=== PATIENT | female | born 1955 | race Caucasian/White ===

== ENCOUNTER 2016-08-06 08:51 | Emergency (ER) | payer OTHER ==
[2016-08-06 09:15] VITALS: BMI 24.4
[2016-08-06] MEDS ORDERED: SODIUM CHLORIDE 1,000 ML IV ONE (09:26)
[2016-08-06] MEDS ORDERED: morphine CARPU-JECT 2 MG/1 ML DISP.SYRIN IVPUSH ONE (10:07)
--- NOTE | 2016-08-06 10:08 | PDOC ---
History of Present Illness <Shailesh Lowry - Last Filed: 08/06/16 13:05> - History of Present Illness Initial Comments: 08/06/16 14:02 The patient is a 60 year old female, with a significant past medical history of kidney stones, who presents to the emergency department with right lower sided abdominal pain, nausea, vomiting, and chills since 2AM this morning. She reports the abdominal pain radiates from her right upper and lower quadrants to her right lower back and down the back of her right leg. She described the pain as sharp, constant, stabbing, 10/10 in severity. She reports numerous episodes of vomiting, and reports the last episode of vomiting as nonbloody just before entering the room to obtain history. The patient reports having a loss of appetite and states she has been experiencing chills, but denies fevers. She reports experiencing a similar pain about a year ago, however, states the pain resolved on its own. She states she became concerned today when the pain continued to increase in severity. The patient states this pain is also similar to her experience with kidney stones six years ago. She denies chest pain, shortness of breath, headache and dizziness. She denies diarrhea and constipation. She denies dysuria, frequency, urgency and hematuria. Allergies: NKDA Past surgical history: Cesarian, breast lumpectomy Social history: Denies toxic habits PCP - Dr. Ainsley Tucker <Lien Moon - Last Filed: 08/06/16 14:03> - General Chief Complaint: Pain, Acute Stated Complaint: FLANK PAIN Time Seen by Provider: 08/06/16 09:25 Past History - Past Medical History Kidney Stones: Yes - Reproductive History Is Patient Now?: No - Immunization History Immunization Up to Date: Yes - Psycho/Social/Smoking Cessation Hx Anxiety: No Suicidal Ideation: No Smoking Status: No Smoking History: Former smoker Have you smoked in the past 12 months: No Number of Cigarettes Smoked Daily: 0 Information on smoking cessation initiated: No Hx Alcohol Use: No Drug/Substance Use Hx: No <Shailesh Lowry - Last Filed: 08/06/16 13:05> <Lien Moon - Last Filed: 08/06/16 14:03> - Past Medical History Allergies/Adverse Reactions: Allergies Allergy/AdvReac Type Severity Reaction Status Date / Time No Known Allergies Allergy Verified 08/06/16 09:12 Home Medications: Ambulatory Orders Ibuprofen 400 mg PO QID #30 tablet 08/06/16 Oxycodone HCl/Acetaminophen [Percocet 5-325 mg Tablet -] 1 combo PO Q6H PRN #14 tablet MDD 4 08/06/16 Tamsulosin HCl [Flomax] 0.4 mg PO DAILY #7 capsule 08/06/16 Review of Systems - Review of Systems Able to Perform ROS?: Yes Comments:: 08/06/16 14:02 CONSTITUTIONAL: (+) Chills,No reported: Fever, Diaphoresis, Generalized Weakness, Malaise, Loss of Appetite HEENT: No reported: Rhinorrhea, Nasal Congestion, Throat Pain, Throat Swelling, Difficulty Swallowing, Mouth Swelling, Ear Pain, Eye Pain, Visual Changes CARDIOVASCULAR: No reported: Chest Pain, Syncope, Palpitations, Irregular Heart Rate, Lightheadedness, Peripheral Edema RESPIRATORY: No reported: Cough, Shortness of Breath, SOB with Exertion, Orthopnea, Wheezing , Stridor, Hemoptysis GASTROINTESTINAL: (+) Right sided bdominal pain, Nausea, Vomiting, No reported: Abdominal Distension, Diarrhea, Constipation, Melena, Hematochezia GENITOURINARY: No reported: Dysuria, Frequency, Urgency, Hesitancy, Flank Pain, Genital Pain MUSCULOSKELETAL: No reported: Myalgia, Arthralgia, Joint Swelling, Back pain, Neck Pain SKIN: No reported: Rash, Itching, Pallor HEMEATOLOGIC/IMMUNOLOGIC: No reported: Easy Bleeding, Easy Bruising, Lymphadenopathy, Frequent infections ENDOCRINE: No reported: Unexplained Weight Gain, Unexplained Weight Loss, Heat Intolerance , Cold Intolerance NEUROLOGIC: No reported: Headache, Focal Weakness, Paresthesias, Vertigo, Lightheadedness, Unsteady Gait, Seizure, Mental Status Changes, Incontinence PSYCHIATRIC: No reported: Anxiety, Depression <Lien Moon - Last Filed: 08/06/16 14:03> *Physical Exam - Vital Signs Last Vital Signs Temp Pulse Resp BP Pulse Ox 97.4 F L 87 20 181/103 96 08/06/16 09:12 08/06/16 09:12 08/06/16 09:12 08/06/16 09:12 08/06/16 09:12 <Shailesh Lowry - Last Filed: 08/06/16 13:05> - Vital Signs Last Vital Signs Temp Pulse Resp BP Pulse Ox 97.4 F L 87 20 181/103 96 08/06/16 09:12 08/06/16 09:12 08/06/16 09:12 08/06/16 09:12 08/06/16 09:12 - Physical Exam Comments: 08/06/16 14:02 GENERAL: (+) Uncomfortable appearing. The patient is awake, alert, and fully oriented, Nontoxic - in no acute distress. HEAD: Normocephalic, atraumatic. EYES: extraocular movements intact, sclera anicteric, conjunctiva clear. ENT: Normal voice, Moist mucous membranes. NECK: Normal range of motion, supple LUNGS: Breath sounds equal, clear to auscultation bilaterally. No wheezes, no rhonchi, no rales. HEART: Regular rate and rhythm, without murmur, rub or gallop. ABDOMEN: (+) diffuse tenderness to palpation in the right abdomen. Soft, normoactive bowel sounds. No guarding, no rebound.No CVA tenderness EXTREMITIES: Normal range of motion, no edema. No clubbing or cyanosis. No cords, erythema, or tenderness. NEUROLOGICAL: No facial assymetry, Normal speech, PSYCH: Normal mood, normal affect. SKIN: Warm, Dry, normal turgor <Lien Moon - Last Filed: 08/06/16 14:03> Heart Score/ECG Review - ECG Impressions Comment:: 08/06/16 13:05 Twelve-lead EKG was performed and reviewed by me. There is normal sinus rhythm with a normal rate. Rate of 81 The axis is normal. QTc interval of 487 There is normal R wave progression There are no ST or T wave abnormalities. <Shailesh Lowry - Last Filed: 08/06/16 13:05> ED Treatment Course - LABORATORY CBC & Chemistry Diagram: 08/06/16 09:40 08/06/16 09:40 <Shailesh Lowry - Last Filed: 08/06/16 13:05> - LABORATORY CBC & Chemistry Diagram: 08/06/16 09:40 08/06/16 09:40 - ADDITIONAL ORDERS Additional order review: Laboratory Results 08/06/16 08/06/16 10:00 09:40 Sodium 139 Potassium 3.7 Chloride 103 Carbon Dioxide 27 Anion Gap 9 BUN 19 H Creatinine 0.7 Creat Clearance w eGFR > 60 Random Glucose 176 H Calcium 9.4 Total Bilirubin 0.5 AST 20 ALT 29 Alkaline Phosphatase 83 Total Protein 7.9 Albumin 4.4 Urine Color Straw Urine Appearance Clear Urine pH 7.0 Ur Specific [place] 1.015 Urine Protein Negative Urine Glucose (UA) 1+ H Urine Ketones 1+ H Urine Blood 2+ H Urine Nitrite Negative Urine Bilirubin Negative Urine Urobilinogen Negative Ur Leukocyte Esterase Negative Urine RBC 101 Urine WBC None Hyaline Casts 1 Urine Mucus Rare 08/06/16 09:40 RBC 4.35 MCV 90.6 MCHC 33.4 RDW 13.0 MPV 8.1 Neutrophils % 86.6 H Lymphocytes % 9.0 Monocytes % 4.0 Eosinophils % 0.1 Basophils % 0.3 - RADIOLOGY Radiograph Interpretation: 08/06/16 12:28 - Medications Given in the ED: ED Medications Discontinued Medications Generic Name Dose Route Start Last Admin Trade Name Freq PRN Reason Stop Dose Admin Sodium Chloride 1,000 mls @ 1,000 mls/hr 08/06/16 09:26 08/06/16 09:53 Normal Saline - IV 08/06/16 10:25 1,000 mls/hr .Q1H ONE Administration Ketorolac Tromethamine 30 mg 08/06/16 10:26 08/06/16 10:55 Toradol Injection - IVPUSH 08/06/16 10:27 30 mg ONCE ONE Administration Morphine Sulfate 2 mg 08/06/16 10:07 08/06/16 10:18 Morphine Injection - IVPUSH 08/06/16 10:08 2 mg ONCE ONE Administration Ondansetron HCl 4 mg 08/06/16 10:16 08/06/16 10:20 Zofran Injection IVPB 08/06/16 10:17 4 mg ONCE ONE Administration <Lien Moon - Last Filed: 08/06/16 14:03> Medical Decision Making - Medical Decision Making 08/06/16 10:40 60y F hx of kidney stones, presents with complaint of R flank pain radiating to the back suddenly at 2am, worsened this morning which prompted her to come to the ED - associated with nbnb vomiting, w/ fevers, diarrhea, dysuria. on exam the pt is uncomfortable appearing with tenderness in the R abdomen (inconsistent , initially was RLQ, then GISELA), consider kidney stone vs gall stone vs appendicitis will ck labs, ua will treat pt sypmtomatically with fluids, zofran, analgesic if UA + blood will obtain CT, otehrwise will start with [facility] A portion of this note was documented by scribe services under my direction. I have reviewed the details of the note, within reason, and agree with the documentation with the following case summary and management plan written by me 08/06/16 12:[address] abdomen noted for 5mm obstructing stone pt currently feeling asypmtomatic will d/c the pt with urology fu return precautions were discussed I discussed the physical exam findings, ancillary test results and final diagnoses with the patient. I answered all of the patient's questions. The patient was satisfied with the care received and felt comfortable with the discharge plan and treatment plan. The patient will call their primary care physician within 24 hours to arrange follow-up and will return to the Emergency Department with any new, persistent or worsening symptoms. <Shailesh Lowry - Last Filed: 08/06/16 13:05> *DC/Admit/Observation/Transfer - Discharge Dispostion Admit: No <Shailesh Lowry - Last Filed: 08/06/16 13:05> - Attestations Scribe Attestion: 08/06/16 14:02 Documentation prepared by Lien Moon, acting as medical office receptionist assistant for Shailesh Lowry MD, MD <Lien Moon - Last Filed: 08/06/16 14:03> Diagnosis at time of Disposition: Kidney stone on right side - Discharge Dispostion Disposition: HOME Condition at time of disposition: Improved - Prescriptions Prescriptions: Tamsulosin HCl [Flomax] 0.4 mg PO DAILY #7 capsule Ibuprofen 400 mg PO QID #30 tablet Oxycodone HCl/Acetaminophen [Percocet 5-325 mg Tablet -] 1 combo PO Q6H PRN #14 tablet MDD 4 PRN Reason: Pain - Referrals Referrals: Ainsley Tucker MD [Primary Care Provider] - Mio Mae MD [Staff Physician] - - Patient Instructions Printed Discharge Instructions: DI for Kidney Stones Additional Instructions: Return to the emergency department immediately with ANY new, persistent or worsening symptoms including worsening pain, inability to tolerate oral intake, fever/chills, or any other concerns. Take the ibuprofen every 6 hours for the next 2 days. Take percocet if you have pain that is not treated with the motrin/ibuprofen. Beware that it may make you sleepy, so do not drive or do anything that would put you or others in danger. Take flomax daily. Stay well hydrated. You MUST call and follow up with your doctor and urology within 3 days for further evaluation of your symptoms. Results were discussed with you. Please make sure your doctor reviews the results of your emergency evaluation. Print Language: FRENCH
[2016-08-06] MEDS ORDERED: morphine CARPU-JECT 2 MG/1 ML DISP.SYRIN ONE (10:12)
[2016-08-06 10:14] LABS: ALBUMIN 4.4 g/dl (3.4-5.0); ANION GAP 9 (8-16); CALCIUM 9.4 mg/dL (8.5-10.1); CO2 27 mmol/L (21-32); CREATININE 0.7 mg/dL (0.55-1.02); GLUCOSE,RANDOM 176 mg/dL (74-106); SGOT/AST 20 U/L (15-37); SGPT/ALT 29 U/L (12-78)
[2016-08-06 10:16] LABS: ALK PHOS 83 U/L (45-117); BILIRUBIN,TOTAL 0.5 mg/dL (0.2-1.0); TOT PROT 7.9 g/dl (6.4-8.2)
[2016-08-06] MEDS ORDERED: ONDANSETRON 4 MG/2 ML VIAL IVPB ONE (10:16)
[2016-08-06] MEDS ORDERED: ONDANSETRON 4 MG/2 ML VIAL ONE (10:17)
[2016-08-06 10:20] LABS: BASOPHIL 0.3 % (0-2.0); EOSINOPHIL 0.1 % (0-4.5); MCH 30.3 pg (25.7-33.7); MCHC 33.4 g/dl (32.0-36.0); MEAN CELL VOLUME 90.6 fl (80-96); MEAN PLT VOLUME 8.1 fl (7.5-11.1); NEUTROPHILS 86.6 % (42.8-82.8); PLATELET COUNT 204 K/MM3 (134-434); WHITE BLOOD COUNT 10.1 K/mm3 (4.0-10.0)
[2016-08-06] MEDS ORDERED: KETOROLAC TROMETHAMINE 30 MG/1 ML VIAL IVPUSH ONE (10:26)
[2016-08-06 10:38] LABS: URINE APPEARANCE CLEAR; URINE BILIRUBIN NEGATIVE (NEGATIVE); URINE COLOR STRAW; URINE GLUCOSE (UA) 1+ (NEGATIVE); URINE KETONE 1+ (NEGATIVE); URINE LEUK ESTERASE NEGATIVE (NEGATIVE); URINE NITRITE NEGATIVE (NEGATIVE); URINE PROTEIN NEGATIVE (NEGATIVE); URINE UROBILINOGEN NEGATIVE E.U./dl (0.2-1.0)
[2016-08-06] MEDS ORDERED: KETOROLAC TROMETHAMINE 30 MG/1 ML VIAL ONE (10:43)
[2016-08-06 10:44] LABS: URINE BLOOD 2+ (NEGATIVE)
--- NOTE | 2016-08-06 10:58 | EKG ---
Test Reason : Blood Pressure : / mmHG Vent. Rate : 081 BPM Atrial Rate : 081 BPM P-R Int : 136 ms QRS Dur : 084 ms QT Int : 420 ms P-R-T Axes : 077 052 033 degrees QTc Int : 487 ms NORMAL SINUS RHYTHM VOLTAGE CRITERIA FOR LEFT VENTRICULAR HYPERTROPHY PROLONGED QT ABNORMAL ECG NO PREVIOUS ECGS AVAILABLE Confirmed by DORCAS IBARRA MD ([id number]) on 08/06/2016 10:58:32 AM Referred By: Confirmed By:DORCAS IBARRA MD
[2016-08-06 11:01] LABS: URINE HYALINE CAST 1 /lpf; URINE MUCUS RARE; URINE RBC 101 /hpf (0-3)
[2016-08-06 13:11] VITALS: BP 145/90; PULSE 80; TEMP 98.6
== END 2016-08-06 13:11 | disposition home or self-care (01) ==
LOC: JER 08:51
PROC: 3E0337Z Introduction of Electrolytic and Water Balance Substance into Peripheral Vein, Percutaneous Approach (ICD-10-PCS; principal; 2016-08-06)
PROC: 3E033NZ Introduction of Analgesics, Hypnotics, Sedatives into Peripheral Vein, Percutaneous Approach (ICD-10-PCS; 2016-08-06)
PROC: 3E0333Z Introduction of Anti-inflammatory into Peripheral Vein, Percutaneous Approach (ICD-10-PCS; 2016-08-06)
PROC: 3E033GC Introduction of Other Therapeutic Substance into Peripheral Vein, Percutaneous Approach (ICD-10-PCS; 2016-08-06)
DX: N20.0 Calculus of kidney (principal); Z87.442 Personal history of urinary calculi
CPT/HCPCS: 36415; 74176; 80053; 81003; 81015; 85025; 93005; 93010; 99285-25

== ENCOUNTER 2023-10-26 06:37 | Emergency (ER) | payer OTHER ==
[2023-10-26 06:42] VITALS: RESP 20; BMI 24.4
[2023-10-26] MEDS ORDERED: IBUPROFEN 400 MG TABLET (FP) PO ONE (07:23)
[2023-10-26] MEDS: IBUPROFEN 400 MG TABLET (FP) PO ONE (07:35)
[2023-10-26 08:12] LABS: EPI CELLS 8 /uL (0-25.1); HYALINE CASTS 2 /uL (0-3.1); URINE APPEARANCE CLEAR; URINE BACTERIA 22 /uL (0-1359); URINE BILIRUBIN NEGATIVE (NEGATIVE); URINE COLOR DK YELLOW; URINE GLUCOSE (UA) NEGATIVE (NEGATIVE); URINE KETONE TRACE (NEGATIVE); URINE LEUK ESTERASE NEGATIVE (NEGATIVE); URINE NITRITE NEGATIVE (NEGATIVE); URINE PROTEIN 1+ (NEGATIVE); URINE WBC 36 /uL (0-25.8)
[2023-10-26 08:55] LABS: URINE RBC 29.6 /uL (0-23.9)
[2023-10-26] MEDS ORDERED: MAG HYDROX/AL HYDROX/SIMETH 30 ML UNIT-DOSE CUP ONE (09:19)
[2023-10-26] MEDS ORDERED: FAMOTIDINE 20 MG TABLET ONE (09:19)
[2023-10-26] MEDS: FAMOTIDINE 20 MG TABLET PO ONE (09:21)
[2023-10-26] MEDS: MAG HYDROX/AL HYDROX/SIMETH 30 ML UNIT-DOSE CUP PO ONE (09:21)
[2023-10-26 10:06] VITALS: BP 118/84; PULSE 81; TEMP 98.6
== END 2023-10-26 10:34 | disposition home or self-care (01) ==
LOC: JER 06:37
DX: J06.9 Acute upper respiratory infection, unspecified (principal); J02.9 Acute pharyngitis, unspecified; R50.9 Fever, unspecified; R05.9 Cough, unspecified; H92.01 Otalgia, right ear; R10.84 Generalized abdominal pain; Z20.822 Contact with and (suspected) exposure to COVID-19
CPT/HCPCS: 0241U-QW; 81003; 87086; 99283-25

== ENCOUNTER → 2023-12-15 | Day surgery (SDC) | payer OTHER | END | disposition home or self-care (01) | LOC: JRADUS-SUR 08:40 | PROVIDERS: ATTEND Nurse Practitioner Family | PROC: 0H9U3ZX Drainage of Left Breast, Percutaneous Approach, Diagnostic (ICD-10-PCS; principal; 2023-12-15) | DX: N60.12 Diffuse cystic mastopathy of left breast (principal) | CPT/HCPCS: 19083; 77065-TC; 87899; 88305-TC; A4648 ==

== ENCOUNTER 2024-01-17 11:22 | Emergency (ER) | payer OTHER ==
[2024-01-17 11:35] VITALS: BP 175/83; PULSE 109; RESP 17; TEMP 98.4; BMI 24.4
[2024-01-17] MEDS ORDERED: IBUPROFEN 400 MG TABLET (FP) PO ONE (12:35)
[2024-01-17] MEDS: IBUPROFEN 400 MG TABLET (FP) PO ONE (12:36)
== END 2024-01-17 15:46 | disposition home or self-care (01) ==
LOC: JERFT 11:22
DX: M79.672 Pain in left foot (principal); R20.0 Anesthesia of skin; R53.1 Weakness; W01.0XXA Fall on same level from slipping, tripping and stumbling without subsequent striking against object, initial encounter; X50.1XXA Overexertion from prolonged static or awkward postures, initial encounter
CPT/HCPCS: 73610-TC-LT-FY; 73630-TC-LT; 99283-25

== ENCOUNTER 2024-02-23 19:03 | Emergency (ER) | payer OTHER ==
[2024-02-23 19:41] VITALS: TEMP 98; BMI 24.4
[2024-02-23] MEDS: SODIUM CHLORIDE 0.9% 500 ML INFUS.BAG IV ONE (20:43)
[2024-02-23 20:51] LABS: BASO % 0.1 % (0-2.0); EOS % 0.4 % (0-4.5); HEMATOCRIT 36.3 % (32.4-45.2); HEMOGLOBIN 12.2 GM/dL (10.7-15.3); LYMPH % 9.1 % (8-40); MCH 30.7 pg (25.7-33.7); MCHC 33.6 g/dl (32.0-36.0); MEAN CELL VOLUME 91.3 fl (80-96); MEAN PLT VOLUME 7.8 fl (7.5-11.1); MONO % 4.4 % (3.8-10.2); PLATELET COUNT 187 10^3/uL (134-434); RBC 3.97 M/mm3 (3.60-5.2); RDW 13.3 % (11.6-15.6); WHITE BLOOD COUNT 8.9 K/mm3 (4.0-10.0)
[2024-02-23 21:12] LABS: POTASSIUM 3.4 mmol/L (3.5-5.1)
[2024-02-23 21:16] LABS: BLOOD UREA NITROGEN 18.3 mg/dL (7-18)
[2024-02-23 21:18] LABS: CREATININE 0.5 mg/dL (0.55-1.3)
[2024-02-23 21:20] LABS: BILIRUBIN,TOTAL 0.4 mg/dL (0.2-1); TOT PROT 7.4 g/dl (6.4-8.2)
[2024-02-23] MEDS ORDERED: POTASSIUM CHLORIDE ORAL LIQUID 20 MEQ/15 ML ONE (21:42)
[2024-02-23] MEDS: POTASSIUM CHLORIDE ORAL LIQUID 20 MEQ/15 ML PO ONE (21:43)
[2024-02-23 22:00] VITALS: BP 173/100; PULSE 76; RESP 16
== END 2024-02-23 22:00 | disposition home or self-care (01) ==
LOC: JER 19:03
DX: R42 Dizziness and giddiness (principal); R11.0 Nausea; R53.1 Weakness
CPT/HCPCS: 36415; 80053; 82962; 84484; 85025; 93005; 93010; 99284-25

== ENCOUNTER 2024-06-13 07:23 | Emergency (ER) | payer OTHER ==
[2024-06-13 07:36] VITALS: BP 163/96; PULSE 88; RESP 16; TEMP 98.6; BMI 21.4
[2024-06-13] MEDS ORDERED: ACETAMINOPHEN 325 MG TABLET (FP) ONE (08:02)
[2024-06-13] MEDS: ACETAMINOPHEN 325 MG TABLET (FP) PO ONE (08:09)
== END 2024-06-13 08:41 | disposition home or self-care (01) ==
LOC: JER 07:23 → JERFT 07:23
DX: R05.9 Cough, unspecified (principal); J06.9 Acute upper respiratory infection, unspecified; R09.81 Nasal congestion; M79.10 Myalgia, unspecified site; Z20.822 Contact with and (suspected) exposure to COVID-19
CPT/HCPCS: 0241U-QW; 71046-TC-FY; 99284-25

== ENCOUNTER 2024-08-19 08:33 | Emergency (ER) | payer OTHER ==
[2024-08-19 08:38] VITALS: BP 149/86; RESP 16; BMI 24.4
[2024-08-19] MEDS ORDERED: ONDANSETRON *ODT* 4 MG TABLET ONE (09:17)
[2024-08-19] MEDS ORDERED: ACETAMINOPHEN 500 MG TABLET (FP) ONE (09:17)
[2024-08-19] MEDS ORDERED: IBUPROFEN 600 MG TABLET (FP) PO ONE (09:17)
[2024-08-19] MEDS: IBUPROFEN 600 MG TABLET (FP) PO ONE (09:35)
[2024-08-19] MEDS: ACETAMINOPHEN 500 MG TABLET (FP) PO ONE (09:35)
[2024-08-19] MEDS: ONDANSETRON *ODT* 4 MG TABLET SL ONE (09:35)
[2024-08-19 10:17] VITALS: PULSE 95; TEMP 98.6
== END 2024-08-19 11:10 | disposition home or self-care (01) ==
LOC: JERFT 08:33
DX: U07.1 COVID-19 (principal); R51.9 Headache, unspecified; J02.9 Acute pharyngitis, unspecified; M79.10 Myalgia, unspecified site; R50.9 Fever, unspecified; R00.0 Tachycardia, unspecified
CPT/HCPCS: 0241U-QW; 71046-TC-FY; 99284-25; Q0162